=== PATIENT | male | born 1975 ===

== ENCOUNTER 2017-11-20 09:25 | Outpatient (CLI) | payer OTHER | END 2017-11-20 09:26 | disposition home or self-care (01) | LOC: LAB 09:25 | DX: E55.9 Vitamin D deficiency, unspecified (principal); M85.9 Disorder of bone density and structure, unspecified; D64.89 Other specified anemias; E78.2 Mixed hyperlipidemia; E88.89 Other specified metabolic disorders; N41.8 Other inflammatory diseases of prostate ==

== ENCOUNTER → 2017-11-23 | Day surgery (SDC) | payer OTHER | END | disposition home or self-care (01) | LOC: AMB-ENDOS 07:58 | DX: D12.2 Benign neoplasm of ascending colon (principal); D12.4 Benign neoplasm of descending colon; K64.8 Other hemorrhoids; Z12.11 Encounter for screening for malignant neoplasm of colon ==

== ENCOUNTER → 2018-05-12 10:05 | Outpatient (CLI) | payer OTHER | END | disposition home or self-care (01) | LOC: LAB 10:05 | DX: E07.89 Other specified disorders of thyroid (principal); E78.00 Pure hypercholesterolemia, unspecified; R97.20 Elevated prostate specific antigen [PSA]; R79.89 Other specified abnormal findings of blood chemistry; R68.89 Other general symptoms and signs; R82.90 Unspecified abnormal findings in urine; E55.9 Vitamin D deficiency, unspecified ==

== ENCOUNTER 2018-06-07 08:16 | Outpatient (CLI) | payer OTHER | END 2018-06-07 15:00 | disposition home or self-care (01) | LOC: LAB 08:16 | DX: J02.8 Acute pharyngitis due to other specified organisms (principal) ==

== ENCOUNTER 2018-10-03 09:36 | Outpatient (CLI) | payer OTHER | END 2018-10-03 10:15 | disposition home or self-care (01) | LOC: LAB 09:36 | DX: I10 Essential (primary) hypertension (principal); R05 Cough; E03.8 Other specified hypothyroidism; E11.9 Type 2 diabetes mellitus without complications ==

== ENCOUNTER 2019-01-07 12:16 | Outpatient (CLI) | payer OTHER | END 2019-01-07 12:20 | disposition home or self-care (01) | LOC: LAB 12:16 | DX: J11.1 Influenza due to unidentified influenza virus with other respiratory manifestations (principal); R50.9 Fever, unspecified ==

== ENCOUNTER → 2019-03-24 14:34 | Outpatient (CLI) | payer OTHER | END | disposition home or self-care (01) | LOC: LAB 14:34 | DX: R50.9 Fever, unspecified (principal); J11.1 Influenza due to unidentified influenza virus with other respiratory manifestations ==

== ENCOUNTER → 2019-09-25 14:04 | Outpatient (CLI) | payer OTHER | END | disposition home or self-care (01) | LOC: LAB 14:04 | PROVIDERS: ATTEND Plastic Surgery | DX: Z03.818 Encounter for observation for suspected exposure to other biological agents ruled out (principal); Z11.59 Encounter for screening for other viral diseases; Z20.828 Contact with and (suspected) exposure to other viral communicable diseases ==

== ENCOUNTER 2019-11-04 08:10 | Outpatient (CLI) | payer OTHER | END 2019-11-04 09:00 | disposition home or self-care (01) | LOC: LAB 08:10 | PROVIDERS: ATTEND Plastic Surgery | DX: Z20.828 Contact with and (suspected) exposure to other viral communicable diseases (principal); Z03.818 Encounter for observation for suspected exposure to other biological agents ruled out ==

== ENCOUNTER 2019-12-26 01:11 | Outpatient (CLI) | payer OTHER | END 2019-12-26 16:22 | disposition home or self-care (01) | LOC: PPH VACUNA 01:11 → LAB 12-29 16:02 | DX: Z23 Encounter for immunization (principal) ==

== ENCOUNTER → 2020-01-11 11:34 | Outpatient (CLI) | payer OTHER | END | disposition home or self-care (01) | LOC: LAB 11:34 | DX: Z03.818 Encounter for observation for suspected exposure to other biological agents ruled out (principal); Z11.59 Encounter for screening for other viral diseases ==

== ENCOUNTER 2020-02-09 08:35 | Outpatient (CLI) | payer OTHER | END 2020-02-09 15:00 | disposition home or self-care (01) | LOC: LAB 08:35 | PROVIDERS: ATTEND Plastic Surgery | DX: Z03.818 Encounter for observation for suspected exposure to other biological agents ruled out (principal); Z11.59 Encounter for screening for other viral diseases ==

== ENCOUNTER 2020-02-23 08:32 | Outpatient (CLI) | payer OTHER | END 2020-02-23 14:54 | disposition home or self-care (01) | LOC: LAB 08:32 | PROVIDERS: ATTEND Plastic Surgery | DX: Z03.818 Encounter for observation for suspected exposure to other biological agents ruled out (principal); Z11.59 Encounter for screening for other viral diseases ==

== ENCOUNTER 2020-07-12 09:22 | Outpatient (CLI) | payer OTHER | END 2020-07-12 16:21 | disposition home or self-care (01) | LOC: LAB 09:22 | PROVIDERS: ATTEND Plastic Surgery | DX: Z03.818 Encounter for observation for suspected exposure to other biological agents ruled out (principal) ==

== ENCOUNTER 2020-11-19 08:52 | Outpatient (CLI) | payer OTHER | END 2020-11-19 09:06 | disposition home or self-care (01) | LOC: LAB 08:52 | PROVIDERS: ATTEND Plastic Surgery | DX: Z03.818 Encounter for observation for suspected exposure to other biological agents ruled out (principal); Z11.59 Encounter for screening for other viral diseases ==

== ENCOUNTER 2020-11-22 19:04 | Outpatient (CLI) | payer OTHER | END 2020-11-22 23:00 | disposition home or self-care (01) | LOC: LAB 19:04 | PROVIDERS: ATTEND Plastic Surgery | DX: Z20.818 Contact with and (suspected) exposure to other bacterial communicable diseases (principal) ==

== ENCOUNTER 2020-12-06 07:53 | Outpatient (CLI) | payer OTHER | END 2020-12-06 08:07 | disposition home or self-care (01) | LOC: LAB 07:53 | PROVIDERS: ATTEND Plastic Surgery | DX: Z20.828 Contact with and (suspected) exposure to other viral communicable diseases (principal); Z03.818 Encounter for observation for suspected exposure to other biological agents ruled out ==

== ENCOUNTER → 2020-12-31 | Outpatient (CLI) | payer OTHER | END | disposition home or self-care (01) | LOC: PPH VACUNA 08:00 | PROVIDERS: ATTEND Emergency Medicine Pediatric Emergency Medicine | DX: Z23 Encounter for immunization (principal) ==

== ENCOUNTER 2021-01-03 08:01 | Outpatient (CLI) | payer OTHER | END 2021-01-03 08:46 | disposition home or self-care (01) | LOC: LAB 08:01 | PROVIDERS: ATTEND Plastic Surgery | DX: I10 Essential (primary) hypertension (principal); E78.49 Other hyperlipidemia ==

== ENCOUNTER → 2021-01-31 12:35 | Outpatient (CLI) | payer OTHER | END | disposition home or self-care (01) | LOC: LAB 12:35 | PROVIDERS: ATTEND Plastic Surgery | DX: Z20.828 Contact with and (suspected) exposure to other viral communicable diseases (principal); Z03.818 Encounter for observation for suspected exposure to other biological agents ruled out ==

== ENCOUNTER 2021-04-14 15:23 | Outpatient (CLI) | payer OTHER | END 2021-04-14 15:27 | disposition home or self-care (01) | LOC: LAB 15:23 | PROVIDERS: ATTEND Plastic Surgery | DX: Z03.818 Encounter for observation for suspected exposure to other biological agents ruled out (principal); Z20.828 Contact with and (suspected) exposure to other viral communicable diseases ==

== ENCOUNTER 2021-05-04 19:57 | Inpatient (IN) | payer OTHER ==
[~2021-05-04] VITALS: Ht 180.3 cm; Wt 86.2 kg
[2021-05-04] MEDS ORDERED: CARDIZEM CD240 MG (20:10)
[2021-05-04] MEDS ORDERED: CRESTOR5 MG (20:11)
[2021-05-04] MEDS ORDERED: OMEPRAZOLE (20:12)
[2021-05-04] MEDS ORDERED: SINGULAIR10 MG (20:12)
[2021-05-05] MEDS ORDERED: PRILOSEC10 MG (08:13)
[2021-05-07] MEDS ORDERED: ZITHROMAX500 MG PO (09:42)
[2021-05-07] MEDS ORDERED: INTESTINEX680 M2 PO (09:42)
[2021-05-07] MEDS ORDERED: PANTOPRAZOLE SO40 MG PO (09:42)
[2021-05-07] MEDS ORDERED: SINGULAIR10 MG PO (09:42)
[2021-05-07] MEDS ORDERED: CRESTOR5 MG PO (09:42)
[2021-05-07] MEDS ORDERED: METRONIDAZOLE500 MG PO (09:42)
[2021-05-07] MEDS ORDERED: CARDIZEM CD240 MG PO (09:42)
== END 2021-05-07 11:06 | disposition home or self-care (01) | DRG 386 ==
LOC: ER 19:57 → SURH 20:48
PROVIDERS: ADMIT Internal Medicine Geriatric Medicine; ATTEND Internal Medicine Geriatric Medicine
PROC: BW21YZZ Computerized Tomography (CT Scan) of Abdomen and Pelvis using Other Contrast (ICD-10-PCS; 2021-05-05)
PROC: 0DB68ZX Excision of Stomach, Via Natural or Artificial Opening Endoscopic, Diagnostic (ICD-10-PCS; principal; 2021-05-06)
PROC: 0DB78ZX Excision of Stomach, Pylorus, Via Natural or Artificial Opening Endoscopic, Diagnostic (ICD-10-PCS; 2021-05-06)
DX: K51.50 Left sided colitis without complications (principal); K62.5 Hemorrhage of anus and rectum; K29.60 Other gastritis without bleeding; R10.13 Epigastric pain; K82.4 Cholesterolosis of gallbladder; K64.8 Other hemorrhoids; I10 Essential (primary) hypertension; U09.9 Post COVID-19 condition, unspecified

== ENCOUNTER → 2021-09-16 | Outpatient (CLI) | payer OTHER ==
[~2021-09-16] MED LIST: CARDIZEM CD240 MG; CARDIZEM CD240 MG PO; CRESTOR5 MG; CRESTOR5 MG PO; INTESTINEX680 M2 PO; METRONIDAZOLE500 MG PO; OMEPRAZOLE; PANTOPRAZOLE SO40 MG PO; PRILOSEC10 MG; SINGULAIR10 MG; SINGULAIR10 MG PO; ZITHROMAX500 MG PO
== END | disposition home or self-care (01) ==
LOC: TOM 10:15
PROVIDERS: ATTEND Plastic Surgery
DX: S29.9XXA Unspecified injury of thorax, initial encounter (principal); S39.91XA Unspecified injury of abdomen, initial encounter

== ENCOUNTER 2022-06-26 07:57 | Outpatient (CLI) | payer OTHER | END 2022-06-26 08:08 | disposition home or self-care (01) | LOC: LAB 07:57 | DX: E03.8 Other specified hypothyroidism (principal); I10 Essential (primary) hypertension; D64.9 Anemia, unspecified; E78.89 Other lipoprotein metabolism disorders ==

== ENCOUNTER 2023-02-02 08:05 | Outpatient (CLI) | payer OTHER ==
[2023-02-02 08:42] LABS: HEMATOCRIT 43.8 % (39.0-48.0); HEMOGLOBIN 14.9 g/dL (13-16.00); MEAN CORPUSCULAR HEMOGLOBIN 27.5 pg (27.00-32.0); PLATELET COUNT 248 K/uL (150-450); RED BLOOD COUNT 5.41 M/uL (4.00-6.00)
[2023-02-02 09:42] LABS: ALBUMIN 3.7 gm/dL (3.4-5.0); BILIRUBIN TOTAL 0.74 mg/dL (0.3-1.2); CALCIUM 9.2 mg/dL (8.5-10.1); CHOL HDL RATIO 4.3 (0-5.0); CREATININE SERUM 1.04 mg/dL (0.70-1.30); FREE TRIODOTIRONINE 2.66 pg/ml (2.18-3.98); GFR 76.55; GLOBULINA 3.7 G/DL (2.4-3.5); POTASSIUM 4.12 mEq/L (3.5-5.1); PROSTATIC SPECIFIC ANTIGEN 1.42 NG/ML (0.010-4.00); T4 FREE 1.04 NG/ML (0.76-1.46); TOTAL PROTEIN 7.4 gm/dL (6.4-8.2); TSH 1.79 uIU/mL (0.358-3.74)
== END 2023-02-02 10:46 | disposition home or self-care (01) ==
LOC: LAB 08:05
DX: E78.00 Pure hypercholesterolemia, unspecified (principal); E03.8 Other specified hypothyroidism; E11.9 Type 2 diabetes mellitus without complications; D64.9 Anemia, unspecified

== ENCOUNTER 2023-02-12 08:35 | Outpatient (CLI) | payer OTHER | END 2023-02-12 08:56 | disposition home or self-care (01) | LOC: SONOGRAMA 08:35 | DX: K81.9 Cholecystitis, unspecified (principal); R07.9 Chest pain, unspecified ==

== ENCOUNTER 2023-06-15 12:09 | Outpatient (CLI) | payer OTHER | END 2023-06-15 13:42 | disposition home or self-care (01) | LOC: LAB 12:09 → EDBD 12:09 → LAB 13:42 | PROVIDERS: ATTEND Plastic Surgery | DX: Z00.00 Encounter for general adult medical examination without abnormal findings (principal) ==

== ENCOUNTER 2023-12-14 14:05 | Outpatient (CLI) | payer OTHER | END 2023-12-16 15:50 | disposition home or self-care (01) | LOC: RAD 14:05 | PROVIDERS: ATTEND Plastic Surgery | DX: S60.939A Unspecified superficial injury of unspecified thumb, initial encounter (principal) ==

== ENCOUNTER 2024-05-26 08:41 | Outpatient (CLI) | payer OTHER ==
[2024-05-26 09:28] LABS: HEMATOCRIT 45.2 % (39.0-48.0); HEMOGLOBIN 14.7 g/dL (13-16.00); MEAN CELL VOLUME 81.8 fL (80.0-100.00); MEAN CORPUSCULAR HEMOGLOBIN 26.7 pg (27.00-32.0); MEAN CORPUSCULAR HGB CONC 32.6 g/dl (32.0-36.0); PLATELET COUNT 277 K/uL (150-450); RED BLOOD COUNT 5.53 M/uL (4.00-6.00); RED CELL DISTRIBUTION WIDTH 14.3 % (11.5-14.5)
[2024-05-26 10:34] LABS: BILIRUBIN TOTAL 0.61 mg/dL (0.3-1.2); CHOL HDL RATIO 3.8 (0-5.0); CREATININE SERUM 1.01 mg/dL (0.70-1.30); FREE TRIODOTIRONINE 2.95 pg/ml (2.18-3.98); GFR 78.84; GLOBULINA 3.2 G/DL (2.4-3.5); POTASSIUM 4.15 mEq/L (3.5-5.1); PROSTATIC SPECIFIC ANTIGEN 1.9 NG/ML (0.010-4.00); T4 TOTAL 8.06 UG/DL (4.5-12.1); TOTAL PROTEIN 7.2 gm/dL (6.4-8.2); TSH 1.86 uIU/mL (0.358-3.74)
[2024-05-26 13:32] LABS: URINE APPEARANCE Clear; URINE BILIRRUBIN Negative (NEGATIVE); URINE BLOOD Negative; URINE COLOR Yellow; URINE GLUCOSE Negative (NEGATIVE); URINE KETONE Negative (NEGATIVE); URINE LEUKOCYTE Negative; URINE NITRATE Negative; URINE PROTEIN Negative (NEGATIVE); URINE UROBILINOGEN 0.2 E.U./dl
[2024-05-26 13:33] LABS: URINE BACTERIA 4.8 uL (0.0-1933)
[2024-05-26 13:45] LABS: URINE EPITHELIAL CELLS 0.1 uL (0.0-38.8); URINE RBC 1.6 uL (0.0-20.8); URINE WBC 0.9 uL (0.0-23.2)
== END 2024-05-26 08:47 | disposition home or self-care (01) ==
LOC: LAB 08:41
PROVIDERS: ATTEND Plastic Surgery
DX: I10 Essential (primary) hypertension (principal); E11.9 Type 2 diabetes mellitus without complications; E03.9 Hypothyroidism, unspecified